=== PATIENT | female | born 1985 | race Two or more races ===

== ENCOUNTER 2020-05-23 12:18 | Emergency (ER) | payer OTHER ==
[~2020-05-23] VITALS: Ht 152.4 cm; Wt 68.0 kg
[2020-05-23 13:48] VITALS: BP 123/72
== END 2020-05-23 13:35 | disposition home or self-care (01) ==
LOC: ER 12:24
DX: Z20.828 Contact with and (suspected) exposure to other viral communicable diseases (principal); R05 Cough
CPT/HCPCS: 99283; C9803; U0003